=== PATIENT | male | born 1960 | race Caucasian/White ===

== ENCOUNTER → 2017-04-12 | Day surgery (SDC) | payer OTHER ==
[~2017-04-12] VITALS: Ht 185.4 cm; Wt 120.0 kg
[~2017-04-12] MED LIST: 0.9% Sodium Chloride 1,000 ML IV SCH; ASPI-973 PO; CETI10CA PO; ERGO2000 PO; FURO-129 PO; Lactated Ringer's 1,000 ML IV SCH; MAGN250T29 PO; METH454P2 PO; METO50TA3 PO; MetoCLOpramide 5 mg/mL 2 mL Inj IVPUSH PRN; Ondansetron 2 mg/mL 2 mL Inj IVPUSH PRN; Propofol 10,000 mCg/mL 20 mL Inj ONE; SILD20TA14 PO; SOTA160T PO; Sodium Chloride LOK Flush 10 mL Syringe IV PRN; fentaNYL-PF 50 mCg/mL 2 mL Inj IVPUSH PRN; fentaNYL-PF 50 mCg/mL 2 mL Inj ONE
[2017-04-12 11:03] VITALS: BP 128/91; PULSE 59; RESP 16; O2SAT 97
--- NOTE | 2017-04-12 13:53 | PCM.HPANE ---
Patient Data Surgeon Admitting Provider: Attending Provider:Leonard Beal MD Primary Care Physician:Vee Holley MD Other Provider: Reason for Visit History Of Colonic Polyp Ht/WT & BMI Height (Feet): 6 Height (Inches): 1 Weight (Kilograms): 120 Body Mass Index 35.00 Allergies Coded Allergies: codeine (Verified Allergy, Unknown, RASH, 04/12/17) morphine (Verified Adverse Reaction, Intermediate, nausea, 04/12/17) Past Anesthesia History Anesthesia History: Denies:: Abnormal Airway, Anesthesia Reactions (ICD), Difficult Intubation, Fam Anesthesia Reaction, Fam Malignant Hypertherm, Malignant Hyperthermia Diabetes History Hx Diabetes?: No MRSA MRSA: No Medications Blood Thinner: Aspirin Last Dose Blood Thinner: Apr 08, 2017 Home Meds Incl Beta Pamela: Yes Date Beta Pamela Taken: Apr 12, 2017 Time Beta Pamela Taken: 0800 Reported Medications Methylcellulose (with Sugar) (Fiber Therapy Powder)454 Gm Adbisg977 Gm PO DAILY 04/12/17 Magnesium Oxide (Magnesium)250 Mg Flbfkv232 Mg PO DAILY 04/12/17 Sotalol HCl (Sotalol)160 Mg Qdzbhc863 Mg PO BID 30 Days Ref 0 04/12/17 Furosemide (Lasix)20 Mg Gpkaaq40 Mg PO DAILY 30 Days Ref 0 12/23/15 Cetirizine HCl (Zyrtec)10 Mg Jukxeal93 Mg PO HS PRN For Congestion #30 CAPSULE Ref 0 12/23/15 Aspirin 81 Mg Rmfnih74 Mg PO DAILY Ref 0 12/22/15 Sildenafil Citrate (Sildenafil)20 Mg Dhlqwi81 Mg PO DAILY PRN ED 12/22/15 Discontinued Reported Medications Metoprolol Tartrate 50 Mg Vijfbb93 Mg PO BID 30 Days Ref 0 12/22/15 Ergocalciferol (Vitamin D2) (Vitamin D2)2,000 Unit Tablet2,000 Unit PO DAILY 12/22/15 History History of ENT Problems?: No HEENT History: Positive for:: Sinus Problem (Deviated septum, seasonal allergies) Denies:: Abnormal Airway Cataracts Difficult Intubation Dysphagia Hearing Problem Denture Type: None Teeth Condition: Within Normal Limits Hx of Heart Problems?: Yes Cardiovascular History: Positive for:: AICD (Ventricular Tach) Cardiac Surgery (For Ha-Parkinson White syndrome) Edema Hypertension Denies:: Atrial Fibrillation Chest Pain Congestive Heart Failure Heart Murmur Irregular Heartbeat (Just fast) Pacemaker Valvular Heart Disease Hx of Respiratory Problem?: Yes Respiratory History: Positive for:: Cough Pneumonia Denies:: Asthma COPD Chest Surgery Hemoptysis Tuberculosis Hx Neurologic Problems?: No Neurological History: Denies:: CVA Dementia Dizziness Headaches Parkinson's Disease Seizures Hx of GI Problems?: Yes Hx of Problems?: No Male Hx: Positive for:: Testicular Surgery (Vasectomy reversal surgery) Hx Musculoskeletal Problems?: No Musculoskeletal History: Denies:: Back Injury Joint Replacement Hx of Psycho/Social Problems?: No Psycho Social History: Denies:: Anxiety Hx Depression Suicide Attempt Hx Surgeries?: Yes (Bilat inguinal hernia repairs, hiatal hernia, atrial abl, vasectomy reversa) Hx Any Other Health Problems?: No Other History: Denies:: Hospitalization Thyroid Disease History Blood Transfusions: Denies:: Blood Transfuse Reaction Blood Transfusions Hx Diabetes: No Hx Alcohol Use: Yes (2/day)Hx Substance Use: No Smoking Status: Never Smoker Have You Smoked inLast 12 mo: No Stop/Bang Treated for Sleep Apnea?: No Do You Have a CPAP Machine?: No S-Snoring: Do You Snore Loudly: Yes T-Tired: feel tired, fatigued: No O-Obsered: Observed not breath: Yes P-Blood Pressure: treated: Yes B- Body Mass Index > 35 kg/m2: Yes A- Age over 50: Yes N- Neck Large Circumference: No G- Gender Male: Yes GRIFFIN Total Score: 6 GRIFFIN Risk Assessment: High Risk, =/>3 Yes Risk Assessment Category Category 1A: Patient has history of documented sleep apnea, and HAS NOT received any narcotic, sedative or anesthesia administration during this stay. Category 1B: Patient has history of documented sleep apnea, and HAS received any narcotic , sedative or anesthesia administration during this stay Category 2: Patient has SUSPECTED Obstructive Sleep Apnea, and HAS received any narcotic , sedative or anesthesia administration during this stay. Category 3: Patient has SUSPECTED Obstructive Sleep Apnea and HAS NOT received narcotic, sedative or anesthesia administration during this stay. Category 4: Outpatient in Procedural Areas with known sleep apnea or who screen positive for High Risk via the STOP/BANG questionnaire. Exam Exam Vital Signs Vital Signs Date Time Temp Pulse Resp B/P Pulse Ox O2 Delivery O2 Flow Rate FiO2 04/12/17 11:03 59 16 128/91 97 Room Air General Appearance: Alert, Oriented X3, Cooperative, No Acute Distress HEENT/AIRWAY: MP 2 Lungs: Clear to Auscultation, Normal Air Movement Heart: Exam Unremarkable, Regular Rate/Rhythm, No Murmurs/Rubs/Gallops Plan Impression Patient chart reviewed, patient interviewed and anesthestic plan with risks, benefits, and alternatives discussed, and informed consent obtained. NPO per Anesth. Guidelines: Yes ASA Physical Status: ASA2 Mod Systemic Disease Anesthetic Plan: MAC Bene/Risks/Altern/Consents: Yes HP Complete Prior to Induction: Yes Jeremiah Benson MD Apr 12, 2017 13:53
[2017-04-12 14:30] VITALS: BP 116/80; PULSE 66; RESP 16; O2SAT 99
--- NOTE | 2017-04-12 14:38 | PCM.ANEP1 ---
Post Anesthesia PACU Phase 1 Assessment Vital Signs Vital Signs Date Time Temp Pulse Resp B/P Pulse Ox O2 Delivery O2 Flow Rate FiO2 04/12/17 14:30 66 16 116/80 99 Room Air 04/12/17 11:03 59 16 128/91 97 Room Air Anesthetic Administered: MAC Level of Alertness: Awake, talking LAINEZ's with Equal Strength: Yes Pain: No Nausea or Vomiting: No CV Function & Hydration Stable: Yes Airway Device: Oxygen Delivery: Room Air Lungs: Clear to Auscultation, Normal Air Movement Dermatome Level: Full Sensation PACU Phase 2 Assessment Complications: No Follow up Care: N/A Patient Instructions Provided: Yes Jeremiah Benson MD Apr 12, 2017 14:38
[2017-04-12 14:40] VITALS: BP 119/81; PULSE 59; RESP 16; O2SAT 98
--- NOTE | 2017-04-12 14:54 | ENDO ---
[address] [address] ENDOSCOPY PROCEDURE PATIENT: FREDI DAVIES : 1960 MR#: [id number] ADMIT: 04/12/2017 JOB ID: [id number] PROCEDURE: Colonoscopy. INDICATION: Patient with personal history of colon polyps as well as a family history of colon cancer. ANESTHESIA: The patient's ASA classification, Mallampati score, and medications as per anesthesia note. INSTRUMENT USED: PCF H 180 AL PREPARATION QUALITY: Fair. PROCEDURE DETAILS: After informed consent was obtained, the patient was brought to the GI suite, where he was placed on oxygen via nasal cannula and monitored with continuous pulse oximeter, telemetry, and blood pressure monitoring. A time-out was performed, then he was placed in the left lateral decubitus position and medications were administered for sedation. A digital rectal exam was performed which was unremarkable. The colonoscope was then inserted into the rectum and advanced under direct visualization to the cecum, which was identified by the presence of the ileocecal valve and appendiceal orifice. Once the cecum was reached, the colonoscope was withdrawn back into the rectum and the mucosa and lumen were examined. In the rectum, retroflexion was performed. Following retroflexion, the remaining air in the rectum was suctioned and the procedure was completed. FINDINGS: Normal exam from rectum to cecum. IMPRESSION: Normal colonoscopy. RECOMMENDATIONS: Repeat colonoscopy in five years, sooner symptoms should dictate. COMPLICATIONS: None. ESTIMATED BLOOD LOSS: Zero.
== END | disposition home or self-care (01) ==
LOC: END 00:05
PROVIDERS: ATTEND Internal Medicine Gastroenterology
DX: Z12.11 Encounter for screening for malignant neoplasm of colon (principal); Z86.010 Personal history of colon polyps; Z80.0 Family history of malignant neoplasm of digestive organs; I42.9 Cardiomyopathy, unspecified; I45.6 Pre-excitation syndrome; I10 Essential (primary) hypertension; K21.9 Gastro-esophageal reflux disease without esophagitis; K44.9 Diaphragmatic hernia without obstruction or gangrene; Z87.891 Personal history of nicotine dependence; Z79.82 Long term (current) use of aspirin
CPT/HCPCS: G0105; J2250; J2704; J3010; J7120